=== PATIENT | male | born 1985 | race Caucasian/White ===

== ENCOUNTER 2017-04-11 10:46 | Emergency (ER) | payer SELFPAY ==
[2017-04-11] MEDS ORDERED: Al Hydrox/Mg Hydrox/Simet LIQ* 30 ML UDC PO ONE (11:44)
[2017-04-11] MEDS ORDERED: Lidocaine 2% VISCOUS* 15 ML UDC PO ONE (11:46)
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
== END 2017-04-11 12:52 | disposition home or self-care (01) ==
LOC: UCEAST 10:46
DX: K21.9 Gastro-esophageal reflux disease without esophagitis (principal); Z86.39 Personal history of other endocrine, nutritional and metabolic disease; R03.0 Elevated blood-pressure reading, without diagnosis of hypertension
CPT/HCPCS: 93005; 99202; A9270-GY; G0463

== ENCOUNTER 2017-12-19 20:56 | Emergency (ER) | payer SELFPAY ==
[2017-12-19] MEDS ORDERED: Ketorolac INJ* 30 MG/ML 1 ML VIAL IM ONE (22:03)
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
[2017-12-20 01:14] VITALS: BP 125/83
--- NOTE | 2017-12-20 07:33 | RAD ---
HISTORY: Right-sided chest injury COMPARISONS: None TECHNIQUE: Multiple contiguous axial CT scans of the chest were obtained without intravenous contrast. Coronal and sagittal multiplanar reformations are also submitted for review. FINDINGS: The study is limited by the lack of intravenous contrast. This limits evaluation of the solid organs and vasculature. NECK AND THYROID: The lower neck and thyroid are unremarkable. CHEST WALL: There is no lower cervical, axillary, or supraclavicular lymphadenopathy by size criteria. HEART AND PERICARDIUM: The heart is unremarkable. AORTA AND PULMONARY VASCULATURE: The aorta and pulmonary vasculature are normal. MEDIASTINUM: There is no mediastinal lymphadenopathy by size criteria. YASEMIN: There is no hilar lymphadenopathy by size criteria. AIRWAY AND ESOPHAGUS: The airway is unremarkable, without endobronchial filling defect. The esophagus is grossly normal. LUNG PARENCHYMA: The lungs are clear. PLEURA: No pleural abnormalities are noted. UPPER ABDOMEN: The upper abdomen is unremarkable. BONES AND SOFT TISSUES: No bone or soft tissue abnormalities are noted. OTHER: None. IMPRESSION: NO ACUTE NONCONTRAST CT PATHOLOGY OF THE CHEST
== END 2017-12-20 01:15 | disposition home or self-care (01) ==
LOC: ED 20:56
DX: S20.211A Contusion of right front wall of thorax, initial encounter (principal); F17.210 Nicotine dependence, cigarettes, uncomplicated; V19.9XXA Pedal cyclist (driver) (passenger) injured in unspecified traffic accident, initial encounter; Y93.55 Activity, bike riding; Y92.9 Unspecified place or not applicable; E07.9 Disorder of thyroid, unspecified
CPT/HCPCS: 71250; 96372; 99283; J1885

== ENCOUNTER 2017-12-31 09:11 | Emergency (ER) | payer SELFPAY ==
[2017-12-31 09:32] VITALS: BP 136/91
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
== END 2017-12-31 10:22 | disposition home or self-care (01) ==
LOC: UCEAST 09:11
DX: S01.01XD Laceration without foreign body of scalp, subsequent encounter (principal); V19.3XXD Pedal cyclist (driver) (passenger) injured in unspecified nontraffic accident, subsequent encounter; Z88.5 Allergy status to narcotic agent; F17.210 Nicotine dependence, cigarettes, uncomplicated

== ENCOUNTER 2018-02-19 08:28 | Emergency (ER) | payer SELFPAY ==
[2018-02-19 08:36] VITALS: BP 135/85
--- NOTE | 2018-02-19 09:57 | UC ---
Abdominal Pain Male HPI - HPI Summary HPI Summary: 32 yo male presents burning in his stomach and 4 episodes of vomiting early this morning. He tells me that he has a history of GERD that he tries to control with diet, but last night ate a bbq chicken sandwich with yo and went to bed. Lying down made him feel like he had burning liquid coming up his throat - sitting up relieved this. He was able to sleep, but woke up a few hours later and vomited four times due to this "acid reflux". He has never taken anything OTC for this or been seen by GI. Denies fever, chills, SOB, COLE, chest pain, abdominal pain, constipation, or diarrhea. - History of Current Complaint Chief Complaint: UCGeneralIllness Stated Complaint: VOMITING Time Seen by Provider: 02/19/18 09:57 Hx Obtained From: Patient Onset/Duration: Sudden Onset Severity Initially: Mild Severity Currently: Moderate Pain Intensity: 6 Pain Scale Used: 0-10 Numeric - Allergies/Home Medications Allergies/Adverse Reactions: Allergies Allergy/AdvReac Type Severity Reaction Status Date / Time morphine Allergy decreased Verified 02/19/18 08:37 respirations and heart rate per pt PMH/Surg Hx/FS Hx/Imm Hx - Additional Past Medical History Additional PMH: None Previously Healthy: Yes GI/ History: Gastroesophageal Reflux - Surgical History Surgical History: Yes Surgery Procedure, Year, and Place: tumor removed from left arm - Family History Known Family History: Positive: Unknown - Father was adopted, unknown FHx on father's side, Other - Mother: pt reports mother is being checked for cancer - Social History Occupation: Employed Full-time Lives: Alone Alcohol Use: Occasionally Substance Use Type: None Smoking Status (MU): Light Every Day Tobacco Smoker Type: Cigarettes Review of Systems Constitutional: Negative Skin: Negative Eyes: Negative Respiratory: Negative Cardiovascular: Negative Gastrointestinal: Vomiting, Nausea Genitourinary: Negative Motor: Negative Neurological: Negative Psychological: Negative All Other Systems Reviewed And Are Negative: Yes Physical Exam - Summary Physical Exam Summary: GENERAL: NAD. Obese SKIN: No rashes, sores, or open wounds. HEENT: Head: AT/NC Throat: Posterior oropharynx without exudates, erythema, or tonsillar enlargement. Uvula midline. NECK: Supple. Nontender. No lymphadenopathy. CHEST: CTAB. No r/r/w. No accessory muscle use. Breathing comfortably and in no distress. CV: RRR. Without m/r/g. Pulses intact. Brisk cap refill. ABDOMEN: Soft. Mild TTP LLQ and RLQ. No distention or guarding. Bowel sounds present NEURO: Alert. CN II-XII grossly intact. PSYCH: Age appropriate behavior. Triage Information Reviewed: Yes Vital Signs: Initial Vital Signs Temp 97 F 02/19/18 08:33 Pulse 78 02/19/18 08:33 Resp 16 02/19/18 08:33 BP 135/85 02/19/18 08:33 Pulse Ox 98 02/19/18 08:33 Abd Pain Male Course/Dx - Course Course Of Treatment: Suspect GERD - advised pt to try Zantac and f/u with a PCP. Go to ER if he develops abdominal pain, fever, or new symptoms. - Differential Dx/Clinical Impression Provider Diagnoses: Acid reflux Discharge - Sign-Out/Discharge Documenting (check all that apply): Patient Departure - Discharge Plan Condition: Stable Disposition: HOME Prescriptions: Ondansetron ODT TAB* [Zofran 4 MG Odt TAB*] 4 mg PO Q8H PRN #12 tab.odt PRN Reason: Nausea raNITIdine HCl [Zantac 150 Maximum Streng] 150 mg PO DAILY #30 tab Patient Education Materials: Gastroesophageal Reflux Disease (ED) Forms: *Work Release Referrals: No Primary Care Phys,NOPCP [Primary Care Provider] - [facility]Outside] - As Soon As Possible Additional Instructions: If you develop a fever, shortness of breath, chest pain, new or worsening symptoms - please call your PCP or go to the ED. Your blood pressure was high at todays visit. Please see your primary provider within 4 weeks for recheck and re-evaluation. 1) If you develop a fever, abdominal pain, or diarrhea - please go to the ER 2) Please schedule a follow up appointment with a Primary care doctor - Billing Disposition and Condition Condition: STABLE Disposition: Home
== END 2018-02-19 10:30 | disposition home or self-care (01) ==
LOC: UCEAST 08:28
DX: K21.9 Gastro-esophageal reflux disease without esophagitis (principal); R11.10 Vomiting, unspecified; F17.210 Nicotine dependence, cigarettes, uncomplicated; Z88.5 Allergy status to narcotic agent
CPT/HCPCS: 99212; G0463

== ENCOUNTER 2018-05-25 12:20 | Emergency (ER) | payer SELFPAY ==
[2018-05-25 12:38] VITALS: BP 147/101
--- NOTE | 2018-05-25 14:31 | UC ---
Abdominal Pain Male HPI - HPI Summary HPI Summary: 4 days of epigastric pain that radiates through to his back. Patient complains of several days of watery diarrhea that seems to be a little better today. Today developed nausea and had one episode of vomiting around noon. Says he feels very gassy. Complains of subjective fevers and chills. - History of Current Complaint Chief Complaint: UCGI Stated Complaint: DIARRHEA ABD PAIN VOMITING Time Seen by Provider: 05/25/18 13:55 Hx Obtained From: Patient Onset/Duration: Gradual Onset, Lasting Days, Still Present Timing: Constant Severity Initially: Moderate Severity Currently: Moderate Pain Intensity: 5 Pain Scale Used: 0-10 Numeric Location: Epigastric Radiates: Yes Radiates to: Back Character: Sharp Aggravating Factor(s): Nothing Alleviating Factor(s): Nothing Associated Signs And Symptoms: Positive: Fever - SUBJECTIVE, Nausea, Vomiting, Diarrhea. Negative: Diaphoresis - Allergies/Home Medications Allergies/Adverse Reactions: Allergies Allergy/AdvReac Type Severity Reaction Status Date / Time morphine Allergy decreased Verified 05/25/18 12:38 respirations and heart rate per pt Home Medications: Home Medications Simethicone [Gas-X] 125 mg PO ONCE PRN 05/25/18 [History Confirmed 05/25/18] PMH/Surg Hx/FS Hx/Imm Hx Endocrine History: Thyroid Disease - Surgical History Surgical History: Yes Surgery Procedure, Year, and Place: tumor removed from left arm - Family History Known Family History: Positive: Unknown - Father was adopted, unknown FHx on father's side, Other - Mother: pt reports mother is being checked for cancer Family History: GALLBLADDER DISEASE - MOM - Social History Alcohol Use: Occasionally Substance Use Type: None Smoking Status (MU): Light Every Day Tobacco Smoker Type: Cigarettes Amount Used/How Often: 3-4cig/day Household Exposure Type: Cigarettes Review of Systems Constitutional: Fever - SUBJECTIVE Respiratory: Negative Cardiovascular: Negative Gastrointestinal: Abdominal Pain, Vomiting, Diarrhea, Nausea Genitourinary: Negative All Other Systems Reviewed And Are Negative: Yes Physical Exam Triage Information Reviewed: Yes Appearance: Well-Appearing, No Pain Distress, Well-Nourished Vital Signs: Initial Vital Signs Temp 98.2 F 05/25/18 12:32 Pulse 102 05/25/18 12:32 Resp 18 05/25/18 12:32 BP 147/101 05/25/18 12:32 Pulse Ox 95 05/25/18 12:32 Vital Signs Reviewed: Yes Eyes: Positive: Conjunctiva Clear ENT: Positive: Hearing grossly normal Neck: Positive: Supple Respiratory Exam: Normal Cardiovascular Exam: Normal Abdomen Description: Positive: Soft, Other: - EPIGASTRIC TENDERNESS. Negative: CVA Tenderness (R), CVA Tenderness (L), Distended, Guarding Bowel Sounds: Positive: Present Musculoskeletal: Positive: No Edema Neurological: Positive: Alert Psychological: Positive: Age Appropriate Behavior Skin: Negative: rashes Abd Pain Male Course/Dx - Course Course Of Treatment: PT OFFERED TRANSPORT TO THE ED BY AMBULANCE BUT DECLINES. ADVISED THAT BY NOT TRAVELING IN A MONITORED SETTING HE COULD BE RISKING WORSENING OF HIS CONDITION THAT COULD POSE A THREAT TO HIS LIFE, HEALTH AND MEDICAL SAFETY. HE VERBALIZES UNDERSTANDING AND CONTINUES TO DECLINE AMBULANCE TRANSFER. - Differential Dx/Clinical Impression Provider Diagnoses: EPIGASTRIC PAIN Discharge - Sign-Out/Discharge Documenting (check all that apply): Patient Departure All imaging exams completed and their final reports reviewed: No Studies - Discharge Plan Condition: Stable Disposition: TRANS [facility] Patient Education Materials: Epigastric Pain (ED) Referrals: No Primary Care Phys,NOPCP [Primary Care Provider] - Additional Instructions: GO DIRECTLY TO [facility] FROM [place] FOR FURTHER EVALUATION. YOU HAVE DECLINED TRANSFER TO THE ED BY AMBULANCE. BE ADVISED THAT BY NOT TRAVELING IN A MONITORED SETTING YOU COULD BE RISKING WORSENING OF YOUR CONDITION THAT COULD POSE A THREAT TO YOUR LIFE, HEALTH AND MEDICAL SAFETY. - Billing Disposition and Condition Condition: STABLE Disposition: Trans Higher Lvl of Care Fac
== END 2018-05-25 14:27 | disposition short-term general hospital (02) ==
LOC: UCEAST 12:20
DX: R10.13 Epigastric pain (principal); R11.2 Nausea with vomiting, unspecified; R19.7 Diarrhea, unspecified; R50.9 Fever, unspecified; Z88.5 Allergy status to narcotic agent; F17.210 Nicotine dependence, cigarettes, uncomplicated
CPT/HCPCS: 93005; 99212; G0463

== ENCOUNTER 2018-05-25 15:02 | Emergency (ER) | payer SELFPAY ==
[2018-05-25 17:17] LABS: Hematocrit 46 % (42-52); Hemoglobin 15.3 g/dl (14.0-18.0); Mean Corpuscular HGB Conc 34 g/dl (31-36); Mean Corpuscular Hemoglobin 28 pg (27-31); Mean Corpuscular Volume 84 fL (80-94); Red Blood Count 5.45 10^6/ul (4.00-5.40); Red Cell Distribution Width 15 % (10.5-15); White Blood Count 12.4 10^3/ul (3.5-10.8)
[2018-05-25 17:34] LABS: EGFR Non-African American 86.6 (>60)
[2018-05-25] MEDS ORDERED: Ondansetron INJ* 2 MG/ML VIAL IV ONE (17:54)
[2018-05-25 17:55] LABS: ABS Basophils 0.1 10^3/ul (0-0.2); ABS Eosinophils 0.4 10^3/ul (0-0.6); ABS Lymphocytes 3.4 10^3/ul (1.0-4.8); ABS Monocytes 1.3 10^3/ul (0-0.8); ABS Neutrophils 7.2 10^3/ul (1.5-7.7); ABS Nucleated RBC 0 10^3/ul; Eosinophil % 2.9 % (0-6); Lymphocyte % 27.7 % (25-47); Nucleated Red Blood Cells % 0.2
[2018-05-25] MEDS ORDERED: fentaNYL* 50 MCG/ML 2 ML VIAL (100 MCG VIAL) IV SLOW PU ONE (17:55)
[2018-05-25] MEDS ORDERED: NS 0.9% 1000 ML* 2,000 ML IV ONE (17:55)
--- NOTE | 2018-05-25 18:00 | ED ---
Abdominal Pain/Male - HPI Summary HPI Summary: Patient is a 32 y/o M w/ c/o abdominal pain for the past two days. He states that five days ago, patient began to experience diarrhea. This continued for two days and diarrhea resolved. Three days ago in the evening, patient began to experience abdominal pain. He thought he was just gassy, took some GasX but reports that he has still be experiencing abdominal pain. He also reports experiencing a sulfur/rotten egg taste whenever he burps. No more diarrhea noted , he states he vomited once today. Decreased appetite is also noted. No abdominal surgeries reported, FMHx of stomach uclers. Patient went to [facility] today, was sent to ED for further workup. On triage, pain is rated 5/10. Nothing is noted to aggravate/alleviate Sx. Home medications and allergies are reviewed. - History of Current Complaint Chief Complaint: EDAbdPain Stated Complaint: ABD PAIN Time Seen by Provider: 05/25/18 17:48 Hx Obtained From: Patient Onset/Duration: Lasting Days - abdominal pain for past three days, Still Present Timing: Constant, Lasting Days Severity Currently: Moderate - 5/10 Pain Intensity: 5 Pain Scale Used: 0-10 Numeric - 5/10 Aggravating Factor(s): Nothing Alleviating Factor(s): Nothing Associated Signs And Symptoms: Positive: Decreased Appetite, Vomiting, Diarrhea - since resolved, Other - bad smelling breath - Allergies/Home Medications Allergies/Adverse Reactions: Allergies Allergy/AdvReac Type Severity Reaction Status Date / Time morphine Allergy decreased Verified 05/25/18 15:10 respirations and heart rate per pt Home Medications: Home Medications Ibuprofen TAB* [Advil TAB*] 800 mg PO Q6H PRN 05/25/18 [History Confirmed ] PMH/Surg Hx/FS Hx/Imm Hx Endocrine/Hematology History: Reports: Hx Thyroid Disease Sensory History: Denies: Hx Legally Blind Opthamlomology History: Denies: Hx Legally Blind - Surgical History Surgery Procedure, Year, and Place: tumor removed from left arm - Immunization History Date of Tetanus Vaccine: unk Date of Influenza Vaccine: none Infectious Disease History: No Infectious Disease History: Denies: Traveled Outside the [place] in Last 30 Days - Family History Known Family History: Positive: Unknown - Father was adopted, unknown FHx on father's side, Other - Mother: pt reports mother is being checked for cancer Family History: GALLBLADDER DISEASE - MOM - Social History Alcohol Use: Occasionally Substance Use Type: Reports: None Smoking Status (MU): Light Every Day Tobacco Smoker Type: Cigarettes Amount Used/How Often: 3-4cig/day Review of Systems Negative: Fever - on vitals, temp is 97.8 F Positive: Abdominal Pain, Vomiting, Diarrhea, Nausea, Other - decreased appetite All Other Systems Reviewed And Are Negative: Yes Physical Exam - Summary Physical Exam Summary: Appearance: Well-appearing, Well-nourished, lying in bed comfortably Skin: Warm, dry, no obvious rash Eyes: sclera anicteric, no conjunctival pallor ENT: mucous membranes moist, pharynx appears normal Neck: Supple, nontender Respiratory: Clear to auscultation, no signs of respiratory distress Cardiovascular: Normal S1, S2. No murmurs. Normal distal pulses in tibial and radial bilaterally. Abdomen: Soft, epigastric tenderness, some guarding, absent bowel sounds Musculoskeletal: Normal, Strength/ROM Intact Neurological: A&Ox3, awake and alert, mentation is normal, speech is fluent and appropriate Psychiatric: affect is normal, does not appear anxious or depressed Triage Information Reviewed: Yes Vital Signs On Initial Exam: Initial Vitals Temp Pulse Resp BP Pulse Ox 97.8 F 96 18 120/85 96 05/25/18 15:06 05/25/18 15:06 05/25/18 15:06 05/25/18 15:06 05/25/18 15:06 Vital Signs Reviewed: Yes Diagnostics - Vital Signs Vital Signs Temp Pulse Resp BP Pulse Ox 05/25/18 15:06 97.8 F 96 18 120/85 96 - Laboratory Lab Results: Lab Results 05/25/18 05/25/18 05/25/18 Range/Units 16:58 16:58 16:58 WBC 12.4 H (3.5-10.8) 10^3/ul RBC 5.45 H (4.00-5.40) 10^6/ul Hgb 15.3 (14.0-18.0) g/dl Hct 46 (42-52) % MCV 84 (80-94) fL MCH 28 (27-31) pg MCHC 34 (31-36) g/dl RDW 15 (10.5-15) % Plt Count Pending MPV Pending Neut % (Auto) Pending Lymph % (Auto) Pending Coffee % (Auto) Pending Eos % (Auto) Pending Baso % (Auto) Pending Absolute Neuts (auto) Pending Absolute Lymphs (auto) Pending Absolute Monos (auto) Pending Absolute Eos (auto) Pending Absolute Basos (auto) Pending Absolute Nucleated RBC Pending Nucleated RBC % Pending Sodium 136 (135-145) mmol/L Potassium 3.9 (3.5-5.0) mmol/L Chloride 103 (101-111) mmol/L Carbon Dioxide 25 (22-32) mmol/L Anion Gap 8 (2-11) mmol/L BUN 11 (6-24) mg/dL Creatinine 1.00 (0.67-1.17) mg/dL Est GFR ( Amer) 104.8 (>60) Est GFR (Non-Af Amer) 86.6 (>60) BUN/Creatinine Ratio 11.0 (8-20) Glucose 95 (70-100) mg/dL Lactic Acid 1.5 (0.5-2.0) mmol/L Calcium 9.1 (8.6-10.3) mg/dL Total Bilirubin 0.60 (0.2-1.0) mg/dL AST 21 (13-39) U/L ALT 31 (7-52) U/L Alkaline Phosphatase 79 (34-104) U/L C-Reactive Protein 52.63 H (<8.01) mg/L Total Protein 7.4 (6.4-8.9) g/dL Albumin 3.9 (3.2-5.2) g/dL Globulin 3.5 (2-4) g/dL Albumin/Globulin Ratio 1.1 (1-3) Lipase < 10 L (11.0-82.0) U/L Result Diagrams: 05/25/18 16:58 05/25/18 16:58 Lab Statement: Any lab studies that have been ordered have been reviewed, and results considered in the medical decision making process. - Ultrasound No standard instances Ultrasound Interpretation Completed By: Radiologist - GALL BLADDER US: IMPRESSION: No acute pathology. No definite evidence of acute cholecystitis. The gallbladder is unremarkable, with no stones identified. No biliary obstruction. The sonographic Gomez's sign is reported to be (-). The ED physician reviewed this radiology report. Abdominal Pain Fem Course/Dx - Course Course Of Treatment: This is a generally healthy 32-year-old male with a recent history of a diarrheal illness followed by significant epigastric pain and tenderness. His laboratory studies are notable only for mild leukocytosis. Liver function tests are normal. Ultrasound of his gallbladder is unremarkable as well. He is feeling well, is actually hungry now, and is stable for discharge. - Diagnoses Provider Diagnoses: Infectious colitis Discharge - Sign-Out/Discharge Documenting (check all that apply): Patient Departure - Discharge Plan Condition: Good Disposition: HOME Patient Education Materials: Acute Abdominal Pain (ED) Referrals: [facility] [Outside] - Billing Disposition and Condition Condition: GOOD Disposition: Home - Attestation Statements Document Initiated by Scribe: Yes Documenting Scribe: Asa Canales Provider For Whom Selam is Documenting (Include Credential): Dr. Alcides Alatorre MD Scribe Attestation: I, Asa Canales, scribed for Dr. Alcides Alatorre MD on at 0219. Scribe Documentation Reviewed: Yes Provider Attestation: The documentation as recorded by the scribe, Asa Canales accurately reflects the service I personally performed and the decisions made by me, Dr. Alcides Alatorre MD
[2018-05-25 18:56] LABS: Urine Appearance Cloudy; Urine Blood Negative (Negative); Urine Color Amber; Urine Ketones Negative (Negative); Urine Protein Negative (Negative); Urine Specific Gravity 1.024 (1.010-1.030); Urine Urobilinogen Negative (Negative)
--- NOTE | 2018-05-25 21:38 | RAD ---
EXAM: US Abdomen Limited, Right Upper Quadrant EXAM DATE/TIME: 05/25/18 (8:38pm) CLINICAL HISTORY: 32 year old male with epigastric pain and tenderness. Possible cholecystitis. TECHNIQUE: Real-time ultrasound of the abdomen with image documentation. Examination was focused on the right upper quadrant. COMPARISON: No relevant prior studies available FINDINGS: Technically limited examination (not NPO, large body habitus). The liver is normal in size (16.5 cm length) and texture. The gallbladder has normal wall thickness (2.4 mm), with no stones nor sludge seen. No pericholecystic fluid is appreciated. The sonographic Gomez's sign is reported to be (-). The CBD is not dilated (4.5 mm diameter). The pancreas is not optimally visualized. The right kidney measures 10.0 cm in length, with no hydronephrosis appreciated. No ascites is seen. IMPRESSION: No acute pathology. No definite evidence of acute cholecystitis. The gallbladder is unremarkable, with no stones identified. No biliary obstruction. The sonographic Gomez's sign is reported to be (-). To contact [facility] with a general question: Operations Center - [phone] For direct physician to physician contact: Physician Hotline - [phone] [facility] ([facility] Facility ID #[id number])
[2018-05-25 22:03] VITALS: BP 112/81
== END 2018-05-25 22:16 | disposition home or self-care (01) ==
LOC: ED 15:02
DX: A09 Infectious gastroenteritis and colitis, unspecified (principal); E07.9 Disorder of thyroid, unspecified; F17.210 Nicotine dependence, cigarettes, uncomplicated
CPT/HCPCS: 36415; 76705; 80053; 81003; 83605; 83690; 85025; 86140; 96361; 96374; 96375; 99283; J2405; J3010

== ENCOUNTER 2018-10-11 14:09 | Emergency (ER) | payer SELFPAY ==
[2018-10-11 14:26] VITALS: BP 133/75
[2018-10-11] MEDS ORDERED: Metoclopramide TAB* 10 MG PO ONE (14:37)
[2018-10-11] MEDS ORDERED: Omeprazole CAP (NF) 20 MG CAP.DR PO ONE (14:38)
[2018-10-11] MEDS ORDERED: Pantoprazole TAB * 40 MG TAB ONE (14:43)
--- NOTE | 2018-10-11 14:44 | UC ---
UC General HPI - HPI Summary HPI Summary: 33-year-old male comes in with a chief complaint of hiccups. He will the parotid clots morning he's been having hiccups ever since. He does get a break where they'll stop for 15 minutes or an hour and a started again. These most recent episode is been going on for 2 hours. He's tried multiple methods to stop the hiccups and doesn't really work. He did end up coughing quite a bit and that stopped them briefly. Every time is a copious chest pain. Does have a history of GERD. Not on any medications. - History of Current Complaint Chief Complaint: UCGI Stated Complaint: HICCUPS Time Seen by Provider: 10/11/18 14:19 Pain Intensity: 7 - Allergy/Home Medications Allergies/Adverse Reactions: Allergies Allergy/AdvReac Type Severity Reaction Status Date / Time morphine Allergy decreased Verified 10/11/18 14:25 respirations and heart rate per pt PMH/Surg Hx/FS Hx/Imm Hx Previously Healthy: Yes - Surgical History Surgical History: Yes Surgery Procedure, Year, and Place: tumor removed from left arm - Family History Known Family History: Positive: Unknown - Father was adopted, unknown FHx on father's side, Other - Mother: pt reports mother is being checked for cancer Family History: GALLBLADDER DISEASE - MOM - Social History Alcohol Use: Occasionally Substance Use Type: None Smoking Status (MU): Light Every Day Tobacco Smoker Type: Cigarettes Amount Used/How Often: 3-4cig/day Household Exposure Type: Cigarettes Review of Systems All Other Systems Reviewed And Are Negative: Yes Constitutional: Positive: Negative Skin: Positive: Negative Eyes: Positive: Negative ENT: Positive: Negative Respiratory: Positive: Negative Cardiovascular: Positive: Other - see hpi Gastrointestinal: Positive: Other - see hpi Motor: Positive: Negative Neurovascular: Positive: Negative Musculoskeletal: Positive: Negative Neurological: Positive: Negative Psychological: Positive: Negative Is Patient Immunocompromised?: No Physical Exam Triage Information Reviewed: Yes Appearance: Well-Appearing, No Pain Distress, Well-Nourished Vital Signs: Initial Vital Signs Temp 97.3 F 10/11/18 14:21 Pulse 114 10/11/18 14:21 Resp 21 10/11/18 14:21 BP 133/75 10/11/18 14:21 Pulse Ox 94 10/11/18 14:21 Vital Signs Reviewed: Yes Eye Exam: Normal Eyes: Positive: Conjunctiva Clear ENT: Positive: Pharynx normal Neck exam: Normal Neck: Positive: Supple Respiratory: Positive: Lungs clear, Normal breath sounds, No respiratory distress Cardiovascular: Positive: RRR Abdomen Description: Positive: Nontender, Soft Bowel Sounds: Positive: Present Musculoskeletal Exam: Normal Musculoskeletal: Positive: Strength Intact, ROM Intact Neurological Exam: Normal Neurological: Positive: Alert, Muscle Tone Normal Psychological Exam: Normal Psychological: Positive: Age Appropriate Behavior Skin Exam: Normal Course/Dx - Diagnoses Provider Diagnosis: Hiccups Discharge - Sign-Out/Discharge Documenting (check all that apply): Patient Departure All imaging exams completed and their final reports reviewed: No Studies - Discharge Plan Condition: Stable Disposition: HOME Prescriptions: Baclofen 5 mg PO TID #15 tablet Famotidine [Acid Controller] 20 mg PO BID #30 tablet Patient Education Materials: Hiccups (ED) Referrals: [facility] [Outside] Additional Instructions: FOLLOW UP WITH YOUR DOCTOR IF NOT COMPLETELY IMPROVED. GET RECHECKED FOR ANY WORSENING OF YOUR CONDITION OR QUESTIONS OR CONCERNS. - Billing Disposition and Condition Condition: STABLE Disposition: Home
[2018-10-11] MEDS ORDERED: Pantoprazole TAB * 40 MG TAB PO ONE (14:50)
== END 2018-10-11 14:51 | disposition home or self-care (01) ==
LOC: UCEAST 14:09
DX: R06.6 Hiccough (principal); R07.89 Other chest pain; F17.210 Nicotine dependence, cigarettes, uncomplicated; Z88.5 Allergy status to narcotic agent
CPT/HCPCS: 99201; A9270-GY; G0463

== ENCOUNTER 2023-06-15 15:33 | Observation (INO) ==
[2023-06-15] MEDS ORDERED: Acetaminophen IV 1 GM/100ML 1,000 MG/100 ML BAG IV ONE (15:44)
[2023-06-15 16:13] LABS: ABS Basophils 0.2 10^3/uL (0.0-0.1); ABS Eosinophils 0.1 10^3/uL (0.0-0.5); ABS Lymphocytes 4.2 10^3/uL (1.0-4.8); ABS Neutrophils 11.1 10^3/uL (1.5-7.6); ABS Nucleated RBC 0.02 10^3/ul; Eosinophil % 0.7 %; Hematocrit 46.4 % (38-53); Hemoglobin 15.5 g/dL (13.2-16.3); Lymphocyte % 25.6 %; Mean Corpuscular Hgb Conc 33.3 g/dL (31-36); Mean Corpuscular Volume 87.1 fL (80-97); Mean Platelet Volume 7.6 fL (7.5-11.2); Nucleated Red Blood Cells % 0.1 %/100WBC (0.0-0.8); Platelet Count 449 10^3/uL (150-450); Red Blood Count 5.33 10^6/uL (4.06-5.63); Red Cell Distribution Width 15.2 % (12-17); White Blood Count 16.6 10^3/uL (3.6-10.2)
[2023-06-15 16:31] LABS: High Sens Troponin Baseline < 3 pg/mL (<20)
[2023-06-15 16:32] LABS: ALT 39 U/L (7-52); AST 17 U/L (13-39); Albumin 3.6 g/dL (3.2-5.2); Albumin/Globulin Ratio 1.1 (1-3); Alkaline Phosphatase 68 U/L (35-149); Anion Gap 7 mmol/L (2-16); Blood Urea Nitrogen 21 mg/dL (6-24); C Reactive Protein 5.46 mg/L (<8.01); CO2 Carbon Dioxide 24 mmol/L (22-32); Calcium 8.6 mg/dL (8.6-10.3); Chloride 107 mmol/L (101-111); Creatinine, Serum 1.03 mg/dL (0.67-1.17); Globulin 3.4 g/dL (2-4); Glucose 104 mg/dL (70-100); Lipase 11 U/L (11.0-82.0); Potassium 3.5 mmol/L (3.5-5.0); Sodium 138 mmol/L (135-145); Total Bilirubin 0.4 mg/dL (0.2-1.0); eGFR CKD-EPI 95.9 (>60)
[2023-06-15] MEDS ORDERED: Iohexol 350 (CONTRAST) 500 ML MDV IV ONE (16:50)
[2023-06-15 17:48] LABS: High Sensitivity Troponin 1 Hr 133 pg/mL (<20)
[2023-06-15] MEDS ORDERED: Heparin DRIP 25,000 UNITS BAG 25,000 UNITS/500 ML BAG IV SCH (18:00)
[2023-06-15] MEDS ORDERED: fentaNYL 100 mcg/2 ml 50 MCG/ML VIAL IV SLOW PU ONE (18:05)
[2023-06-15] MEDS: Heparin 5000 UNITS/ML 1 mL VIAL IV SCH (18:29)
[2023-06-15 18:40] LABS: Urine Appearance Clear; Urine Bilirubin Negative (Negative); Urine Blood Negative (Negative); Urine Color Yellow; Urine Glucose Negative (Negative); Urine Ketones Negative (Negative); Urine Nitrite Negative (Negative); Urine Protein Negative (Negative); Urine Urobilinogen Positive (Negative)
[2023-06-15 22:31] LABS: Urine Specific Gravity 1.063 (1.002-1.030)
[2023-06-15 23:38] LABS: HDL Cholesterol 39.2 mg/dL
[2023-06-16] MEDS: Heparin 5000 UNITS/ML 1 mL VIAL IV SCH (01:13)
[2023-06-16 06:16] LABS: Hemoglobin 14.4 g/dL (13.2-16.3); Mean Corpuscular Hemoglobin 28.9 pg (27-33); Mean Corpuscular Hgb Conc 33.4 g/dL (31-36); Mean Corpuscular Volume 86.7 fL (80-97); Mean Platelet Volume 7.5 fL (7.5-11.2); Platelet Count 411 10^3/uL (150-450); Red Blood Count 4.96 10^6/uL (4.06-5.63); Red Cell Distribution Width 15.2 % (12-17); White Blood Count 13.4 10^3/uL (3.6-10.2)
[2023-06-16 06:32] LABS: Calcium 8.5 mg/dL (8.6-10.3); Creatinine, Serum 1.09 mg/dL (0.67-1.17); Magnesium 2.3 mg/dL (1.9-2.7); Potassium 3.8 mmol/L (3.5-5.0); eGFR CKD-EPI 89.6 (>60)
[2023-06-16 06:36] LABS: ABS Basophils 0.1 10^3/uL (0.0-0.1); ABS Eosinophils 0.2 10^3/uL (0.0-0.5); ABS Monocytes 1.1 10^3/uL (0.0-1.1); ABS Neutrophils 7.9 10^3/uL (1.5-7.6); ABS Nucleated RBC 0.02 10^3/ul; Eosinophil % 1.8 %; Lymphocyte % 30.2 %; Nucleated Red Blood Cells % 0.1 %/100WBC (0.0-0.8); RBC Morphology Normal (Normal)
[2023-06-16 08:05] LABS: Activated Partial Thrombo Time 27.1 seconds (26.0-38.0)
[2023-06-16 08:47] LABS: ABS Basophils 0.1 10^3/uL (0.0-0.1); ABS Eosinophils 0.2 10^3/uL (0.0-0.5); ABS Lymphocytes 3.8 10^3/uL (1.0-4.8); ABS Neutrophils 7.1 10^3/uL (1.5-7.6); ABS Nucleated RBC 0.03 10^3/ul; Eosinophil % 1.6 %; Hemoglobin 14.4 g/dL (13.2-16.3); Mean Corpuscular Hemoglobin 29.1 pg (27-33); Mean Corpuscular Hgb Conc 33.5 g/dL (31-36); Mean Platelet Volume 7.6 fL (7.5-11.2); Nucleated Red Blood Cells % 0.3 %/100WBC (0.0-0.8); Platelet Count 425 10^3/uL (150-450); Red Blood Count 4.94 10^6/uL (4.06-5.63); Red Cell Distribution Width 15.7 % (12-17); White Blood Count 12.2 10^3/uL (3.6-10.2)
[2023-06-16] MEDS ORDERED: Aspirin EC 81 mg TAB.EC (enteric coated) PO SCH (09:00)
[2023-06-16 10:18] LABS: High Sensitivity Troponin 1 Hr < 3 pg/mL (<20)
[2023-06-16 10:28] LABS: INR 1.06 (0.83-1.13)
[2023-06-16] MEDS ORDERED: Sulfur Hexaflouride MICROSPHR 25 MG VIAL ONE (10:58)
[2023-06-16 13:24] LABS: HIV 4th Generation Nonreactive (Nonreactive)
[2023-06-16 14:12] VITALS: BP 122/77
== END 2023-06-16 14:40 | disposition home or self-care (01) ==
LOC: ED 15:33 → EDHOLD 15:33 → SUATTDRO 19:02 → MEDTELE 06-16 10:59
PROVIDERS: ADMIT Internal Medicine; ATTEND Hospitalist